=== PATIENT | male | born 1960 ===

== ENCOUNTER → 2024-06-10 14:22 | Outpatient (REF) | payer OTHER, SELFPAY | LOC: HWRAD 14:22 | PROVIDERS: ATTENDING PHYSICIAN Family Medicine | DX: M25.562 Pain in left knee (principal) | CPT/HCPCS: 73564 ==

== ENCOUNTER 2024-07-14 17:05 | Outpatient (RCR) | payer OTHER, SELFPAY | END 2024-07-15 06:42 | disposition home or self-care (01) | LOC: RPT 17:05 | PROVIDERS: ATTENDING PHYSICIAN Family Medicine | DX: M25.562 Pain in left knee (principal); Z73.6 Limitation of activities due to disability | CPT/HCPCS: 97110; 97162 ==